=== PATIENT | male | born 1975 | race Hispanic/Latino ===

== ENCOUNTER 2021-04-18 19:59 | Inpatient (IN) | payer BC, OTHER ==
[2021-04-18] MEDS ORDERED: FAMOTIDINE 20 MG/2 ML VIAL IV ONE (20:42)
[2021-04-18] MEDS ORDERED: DIPHENHYDRAMINE 50 MG/ML VIAL ONE (20:42)
[2021-04-18] MEDS ORDERED: dexAMETHasone 10 MG/ML VIAL ONE (20:42)
[2021-04-18] MEDS ORDERED: NA CHLORIDE 0.9% 1,000 ML ONE ×2 (20:43→22:25)
[2021-04-18 20:46] LABS: Absolute Lymphocytes (CBC) 2.4 K/uL (0.7-4.9); Hematocrit 46.3 % (39.6-49.0); Lymphocytes % 30.9 % (15.3-44.8); MPV 8.1 fL (7.6-11.3); RBC Red Blood Cell Count 5.13 M/uL (4.33-5.43)
[2021-04-18 21:04] LABS: Albumin 4.1 g/dL (3.4-5.0); Bilirubin Direct 0.1 mg/dL (0-0.2); Bilirubin Total 0.5 mg/dL (0.2-1.0); Potassium 3.3 mmol/L (3.5-5.1); Protein, Total 7.8 g/dL (6.4-8.2)
[2021-04-18 21:08] LABS: Troponin High Sensitivity 63.9 pg/mL (<58.9)
[2021-04-18] MEDS ORDERED: ASPIRIN 325 MG TAB ONE (21:24)
[2021-04-18] MEDS ORDERED: MORPHINE 4 MG/ML SYR ONE ×2 (21:24→22:25)
[2021-04-18] MEDS ORDERED: ONDANSETRON 4 MG/2 ML VIAL ONE ×2 (21:24→22:25)
[2021-04-18] MEDS ORDERED: ASPIRIN 81 MG CHEWABLE TABLET ONE (21:27)
[2021-04-18 21:31] LABS: Protime INR 1.03
--- NOTE | 2021-04-18 21:31 | RAD REPORT ---
EXAM DESCRIPTION: RAD - Chest Single View - 04/18/2021 9:08 pm CLINICAL HISTORY: CHEST PAIN COMPARISON: CHEST PA AND LAT 2 VIEW dated 02/02/2012; CHEST PA AND LAT 2 VIEW dated 01/23/2009 FINDINGS: Lines: None. Lungs: Low lung volumes with mild basilar opacities. Pleural: No significant pleural effusions or pneumothorax. Cardiac: The heart size is within normal limits. Bones: No acute fractures. Other: IMPRESSION: Low lung volumes and likely basilar atelectasis.
--- NOTE | 2021-04-18 22:04 | RAD REPORT ---
EXAM DESCRIPTION: CTAbdomen Pelvis Wo Contrast - 04/18/2021 9:54 pm CLINICAL HISTORY: EPIGASTRIC PAIN COMPARISON: No comparisons TECHNIQUE: CT of the abdomen and pelvis was performed. All CT scans are performed using dose optimization technique as appropriate and may include automated exposure control or mA/KV adjustment according to patient size. FINDINGS: Lower chest: Dependent atelectasis. Liver: Hepatic steatosis. Biliary: Cholelithiasis. Stone impacted near the gallbladder neck. Very mild pericholecystic strandin g. Stomach: No significant focal abnormality. Duodenum: No significant focal abnormality. Pancreas: No significant abnormality. Spleen: No significant abnormality. Adrenal: No suspicious lesions. Kidney/ureter: No hydronephrosis. No renal calculi. Retroperitoneum: No retroperitoneal adenopathy. Vascular: No aneurysm. Bowel: No significant focal abnormality. Normal appendix. Peritoneum: No ascites or free air. Fat containing inguinal hernias. Bladder: Grossly unremarkable. Reproductive: No adnexal masses. Bones: No acute fracture. Other: n/a IMPRESSION: Gallstone impacted near the gallbladder neck with mild pericholecystic stranding concern ing for acute cholecystitis.
--- NOTE | 2021-04-18 22:58 | EDPHYS ---
Physician Documentation [facility] Name: Konstantin Patel Age: 46 yrs Sex: Male : 1975 Arrival Date: 04/18/2021 Time: 20:00 Bed 19 Private MD: ED Physician Hemanth Foreman HPI: 04/18 20:16 This 46 yrs old Male presents to ER via Wheelchair with complaints of pm1 Epigastric Pain - Severe, Swelling of eye. 20:16 The patient presents with abdominal pain in the epigastric area. Onset: The pm1 symptoms/episode began/occurred today. The symptoms do not radiate. Associated signs and symptoms: Pertinent negatives: nausea, vomiting, and diarrhea, chest pain, shortness of breath. The symptoms are described as sharp. Modifying factors: The symptoms are alleviated by nothing, the symptoms are aggravated by food, Beef stew 1-2 hour prior to onset of pain. Severity of pain: in the emergency department the pain is actually worse. The patient has not experienced similar symptoms in the past. The patient has not recently seen a physician. Patient reports swelling to left lower eyelid and rash to face with onset at the same time of abdominal pain. Historical: - Allergies: 20:31 No Known Allergies; lp1 - Home Meds: 20:31 Metformin Oral [Active]; Lisinopril Oral [Active]; lp1 - PMHx: 20:31 Hypertensive disorder; Diabetes mellitus; lp1 - PSHx: 20:31 None; lp1 - Immunization history:: Adult Immunizations up to date. - Social history:: Smoking status: Patient denies any tobacco usage or history of. ROS: 20:16 Constitutional: Negative for fever, chills, and weight loss. pm1 20:16 Cardiovascular: Negative for chest pain, palpitations, and edema, Respiratory: Negative for shortness of breath, cough, wheezing, and pleuritic chest pain. 20:16 Back: Negative for injury and pain, MS/Extremity: Negative for injury and deformity, Skin: Negative for injury, rash, and discoloration, Neuro: Negative for headache, weakness, numbness, tingling, and seizure. 20:16 Eyes: Positive for swelling, of the left lower eyelid. 20:16 Abdomen/GI: Positive for abdominal pain, of the epigastric area, Negative for nausea, vomiting, and diarrhea. 20:16 All other systems are negative. Exam: 20:16 Constitutional: This is a well developed, well nourished patient who is awake, alert, pm1 and in no acute distress. Head/Face: Normocephalic, atraumatic. 20:16 Back: No spinal tenderness. No costovertebral tenderness. Full range of motion. MS/ Extremity: Pulses equal, no cyanosis. Neurovascular intact. Full, normal range of motion. 20:16 Eyes: Extraocular movements: no acute changes, Conjunctiva: no acute changes, Lids and lashes: mild swelling present to left lower eyelid. 20:16 ENT: Exam is negative for acute changes, Mouth: no acute changes, Lips: normal, moist, Oral mucosa: normal, pink and intact, moist. 20:16 Cardiovascular: Exam negative for acute changes, Rate: normal, Rhythm: regular, Pulses: no pulse deficits are appreciated. 20:16 Respiratory: Exam negative for acute changes, respiratory distress, shortness of breath, Breath sounds: are clear throughout. 20:16 Abdomen/GI: Inspection: obese Palpation: soft, in all quadrants, moderate abdominal tenderness, in the epigastric area. 20:16 Skin: Appearance: normal except for affected area, abscess, not appreciated, cellulitis, is not appreciated, rash a mild rash is noted, rash can be described as macular, nonspecific, on the right cheek and left cheek. 20:16 Neuro: Exam negative for acute changes, Orientation: is normal, Motor: is normal, moves all fours. Vital Signs: 20:15 BP 138 / 90; Pulse 65; Resp 24; Pulse Ox 100% on R/A; Weight 131.54 kg (R); Height 5 lp1 ft. 11 in. (180.34 cm); Pain 9/10; 20:56 BP 138 / 90; Pulse 81; Resp 16; Pulse Ox 98% on R/A; kd3 21:05 BP 111 / 68; Pulse 82; Resp 20; Pulse Ox 100% on R/A; kd3 21:44 BP 109 / 53; Pulse 67; Resp 20; Pulse Ox 100% on R/A; kd3 22:43 BP 111 / 75; Pulse 72; Resp 16; Pulse Ox 100% on R/A; kd3 22:45 Temp 98.0(O); kd3 04/19 01:11 BP 123 / 75; Pulse 82; Resp 16; Pulse Ox 100% ; kd3 04/18 20:15 Body Mass Index 40.45 (131.54 kg, 180.34 cm) lp1 MDM: 04/18 20:09 Patient medically screened. pm1 22:39 Data reviewed: vital signs. Data interpreted: Pulse oximetry: on room air is 100 %. pm1 Interpretation: normal. 22:56 Counseling: I had a detailed discussion with the patient and/or guardian regarding: the pm1 historical points, exam findings, and any diagnostic results supporting the discharge/admit diagnosis, lab results, radiology results, the need for further work-up and treatment in the hospital. 23:18 Physician consultation: Mik Pierre MD was called at 23:18, was contacted at 23:18, pm1 regarding consult, patient's condition, and will see patient tomorrow, would like medications started, NPO, Zosyn. Admit to hospitalist for cardiac clearance. 04/18 20:14 Order name: Troponin High Sensitivity; Complete Time: 21:10 pm1 04/18 20:14 Order name: Basic Metabolic Panel; Complete Time: 21:10 pm1 04/18 20:14 Order name: CBC with Diff; Complete Time: 20:50 pm1 04/18 20:14 Order name: Hepatic Function; Complete Time: 21:10 pm1 04/18 20:14 Order name: Lipase; Complete Time: 21:10 pm1 04/18 21:10 Order name: Magnesium pm1 04/18 20:17 Order name: Chest Single View XRAY; Complete Time: 21:33 pm1 04/18 21:10 Order name: NT PRO-BNP pm1 04/18 21:10 Order name: PT-INR; Complete Time: 21:33 pm1 04/18 21:10 Order name: COVID-19 SARS RT PCR (Document "Date of Onset" if Symptomatic); Complete pm1 Time: 22:13 04/18 21:10 Order name: Magnesium; Complete Time: 22:11 EDMS 04/18 21:10 Order name: NT PRO-BNP; Complete Time: 22:11 EDMS 04/18 21:47 Order name: Abdomen ; Complete Time: 22:11 EDMS 04/18 20:14 Order name: EKG; Complete Time: 20:14 pm1 04/18 20:14 Order name: EKG - Nurse/Tech; Complete Time: 20:32 pm1 04/18 20:14 Order name: IV Saline Lock; Complete Time: 20:50 pm1 04/18 20:14 Order name: Labs collected and sent; Complete Time: 20:50 pm1 04/18 21:10 Order name: Cardiac monitoring; Complete Time: 21:11 pm1 04/18 22:15 Order name: US Abdomen Limited pm1 04/18 21:10 Order name: O2 Per Protocol; Complete Time: 21:11 pm1 04/18 21:10 Order name: O2 Sat Monitoring; Complete Time: 21:11 pm1 04/18 22:15 Order name: NPO; Complete Time: 22:17 pm1 Administered Medications: 20:49 Drug: Pepcid (famotidine) 20 mg Route: IVP; Site: left antecubital; kd3 20:49 Drug: Decadron - Dexamethasone 10 mg Route: IVP; Site: left antecubital; kd3 20:49 Drug: NS 0.9% 1000 ml Route: IV; Rate: 1000 ml; Site: left antecubital; kd3 20:50 Drug: Benadryl (diphenhydrAMINE) 25 mg Route: IVP; Site: left antecubital; kd3 21:30 Drug: Aspirin 325 mg Route: PO; kd3 21:30 Drug: morphine 4 mg Route: IVP; Site: left antecubital; kd3 21:30 Drug: Zofran (Ondansetron) 4 mg Route: IVP; Site: left antecubital; kd3 22:26 Drug: morphine 4 mg Route: IVP; Site: left antecubital; kd3 22:39 Drug: NS 0.9% 1000 ml Route: IV; Rate: 100 ml/hr; Site: left antecubital; kd3 23:27 Drug: Zosyn (piperacillin-tazobactam) 3.375 grams Route: IVPB; Infused Over: 60 mins; kd3 Site: left antecubital; 04/19 01:43 Follow up: IV Status: Completed infusion; IV Intake: 100ml lp1 Disposition: 04:20 Co-signature as Attending Physician, Hemanth Foreman MD. [email or web address] Disposition Summary: 04/18/21 22:57 Hospitalization Ordered Hospitalization Status: Inpatient Admission pm1 Provider: Rhina Connell pm1 Location: Telemetry/MedSurg (Inpatient) pm1 Condition: Stable pm1 Problem: new pm1 Symptoms: have improved pm1 Bed/Room Type: Standard pm1 Room Assignment: 223(04/19/21 00:43) mw Diagnosis - Acute cholecystitis pm1 - Rash and other nonspecific skin eruption pm1 Forms: - Medication Reconciliation Form pm1 - SBAR form pm1 Signatures: Dispatcher [employer] EDMS Nurys Motta RN RN mw Leeann King RN RN lp1 Yaw Puentes, NET SOFTWARE ARCHITECT NET SOFTWARE ARCHITECT pm1 Hemanth Foreman MD MD 7 Jazlyn Walden RN RN kd3 Corrections: (The following items were deleted from the chart) 04/18 21:47 20:15 Abdomen Pelvis W Con+CT.RAD.BRZ ordered. EDAK EDMS 04/19 00:32 04/18 22:57 pm1 mw 04/19 00:43 00:32 421 mw mw
--- NOTE | 2021-04-18 22:58 | ER ---
Nurse's Notes [facility] Name: Konstantin Patel Age: 46 yrs Sex: Male : 1975 Arrival Date: 04/18/2021 Time: 20:00 Bed 19 Private MD: Diagnosis: Acute cholecystitis;Rash and other nonspecific skin eruption Presentation: 04/18 20:15 Chief complaint: Patient states: Severe epigastric pain that began suddenly about at lp1 1830, reports eating about an hour before; "I feel like my stomach is swelling"; reports some left eye redness. 20:15 Coronavirus screen: At this time, the client does not indicate any symptoms associated lp1 with coronavirus-19. Ebola Screen: No symptoms or risks identified at this time. Initial Sepsis Screen: Does the patient meet any 2 criteria? No. Patient's initial sepsis screen is negative. Does the patient have a suspected source of infection? No. Patient's initial sepsis screen is negative. Risk Assessment: Do you want to hurt yourself or someone else? Patient reports no desire to harm self or others. Onset of symptoms was April 18, 2021 at 18:30. 20:15 Method Of Arrival: Wheelchair lp1 20:15 Acuity: CHAVA 2 lp1 Triage Assessment: 20:15 General: Appears uncomfortable, Behavior is anxious. Derm: Skin is diaphoretic. lp1 Historical: - Allergies: 20:31 No Known Allergies; lp1 - Home Meds: 20:31 Metformin Oral [Active]; Lisinopril Oral [Active]; lp1 - PMHx: 20:31 Hypertensive disorder; Diabetes mellitus; lp1 - PSHx: 20:31 None; lp1 - Immunization history:: Adult Immunizations up to date. - Social history:: Smoking status: Patient denies any tobacco usage or history of. Screenin:55 Abuse screen: Denies threats or abuse. Denies injuries from another. Nutritional kd3 screening: No deficits noted. Tuberculosis screening: No symptoms or risk factors identified. Fall Risk IV access (20 points). Assessment: 20:51 Reassessment: PT DIAPHORETIC. General: Appears uncomfortable, Behavior is calm, kd3 cooperative. Pain: Complains of pain in epigastric area. Neuro: Level of Consciousness is awake, alert, obeys commands, Oriented to person, place, time, situation. Cardiovascular:. Respiratory: Airway is patent Respiratory effort is even, unlabored. GI: Reports upper abdominal pain, cramping, gaseousness, stomach feels swollen. GI: Bowel sounds present X 4 quads. Derm: Skin is clammy, diaphoretic. Vital Signs: 20:15 BP 138 / 90; Pulse 65; Resp 24; Pulse Ox 100% on R/A; Weight 131.54 kg (R); Height 5 lp1 ft. 11 in. (180.34 cm); Pain 9/10; 20:56 BP 138 / 90; Pulse 81; Resp 16; Pulse Ox 98% on R/A; kd3 21:05 BP 111 / 68; Pulse 82; Resp 20; Pulse Ox 100% on R/A; kd3 21:44 BP 109 / 53; Pulse 67; Resp 20; Pulse Ox 100% on R/A; kd3 22:43 BP 111 / 75; Pulse 72; Resp 16; Pulse Ox 100% on R/A; kd3 22:45 Temp 98.0(O); kd3 04/19 01:11 BP 123 / 75; Pulse 82; Resp 16; Pulse Ox 100% ; kd3 04/18 20:15 Body Mass Index 40.45 (131.54 kg, 180.34 cm) lp1 ED Course: 04/18 20:00 Patient arrived in ED. wm 20:05 Jazlyn Walden, LATISHA is Primary Nurse. kd3 20:08 Yaw Puentes NP is PHCP. pm1 20:08 Hemanth Foreman MD is Attending Physician. pm1 20:15 Patient has correct armband on for positive identification. Bed in low position. 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 Pulse ox on. NIBP on. 20:31 Triage completed. lp1 20:51 Inserted saline lock: 20 gauge in left antecubital area, using aseptic technique. kd3 20:55 Arm band placed on left wrist. kd3 21:08 Chest Single View XRAY In Process Unspecified. EDMS 21:09 Notified Nurse Practitioner and/or Physician Right Of Way Man of Troponin 63.9. lp1 21:54 Abdomen In Process Unspecified. EDMS 22:41 US Abdomen Limited In Process Unspecified. EDMS 22:56 Rhina Connell MD is Hospitalizing Provider. pm1 Administered Medications: 20:49 Drug: Pepcid (famotidine) 20 mg Route: IVP; Site: left antecubital; kd3 20:49 Drug: Decadron - Dexamethasone 10 mg Route: IVP; Site: left antecubital; kd3 20:49 Drug: NS 0.9% 1000 ml Route: IV; Rate: 1000 ml; Site: left antecubital; kd3 20:50 Drug: Benadryl (diphenhydrAMINE) 25 mg Route: IVP; Site: left antecubital; kd3 21:30 Drug: Aspirin 325 mg Route: PO; kd3 21:30 Drug: morphine 4 mg Route: IVP; Site: left antecubital; kd3 21:30 Drug: Zofran (Ondansetron) 4 mg Route: IVP; Site: left antecubital; kd3 22:26 Drug: morphine 4 mg Route: IVP; Site: left antecubital; kd3 22:39 Drug: NS 0.9% 1000 ml Route: IV; Rate: 100 ml/hr; Site: left antecubital; kd3 23:27 Drug: Zosyn (piperacillin-tazobactam) 3.375 grams Route: IVPB; Infused Over: 60 mins; kd3 Site: left antecubital; 04/19 01:43 Follow up: IV Status: Completed infusion; IV Intake: 100ml lp1 Intake: 01:43 IV: 100ml; Total: 100ml. lp1 Outcome: 04/18 22:57 Decision to Hospitalize by Provider. pm1 04/19 02:44 Patient left the ED. kd3 Signatures: Dispatcher [employer] EDLeeann Mccall, RN RN lp1 Yaw Puentes NP GRILL ATTENDANT pm1 Colleen Bush Kyli, RN RN kd3 Corrections: (The following items were deleted from the chart) 04/18 21:09 20:15 Chief complaint: Patient states: Severe epigastric pain that began suddenly about lp1 at 1830, reports eating about an hour before; "I feel like my stomach is swelling"; reports some bilateral eye redness lp1
[2021-04-18] MEDS ORDERED: NA CHLORIDE 0.9% 250 ML ONE (23:28)
[2021-04-18] MEDS ORDERED: PIPERACIL/TAZO 3.375 GM VIAL IV ONE (23:28)
--- NOTE | 2021-04-19 00:27 | P.HP ---
Certification for Inpatient Patient admitted to: Inpatient With expected LOS: <2 Midnights Practitioner: I am a practitioner with admitting privileges, knowledge of patient current condition, hospital course, and medical plan of care. Services: Services provided to patient in accordance with Admission requirements found in Title 42 Section 412.3 of the Code of Federal Regulations Patient History Date of Service: 04/19/21 Primary Care Provider: Dr. Garcia Reason for admission: Cholecystitis History of Present Illness: Patient is a 46-year-old male with type 2 diabetes [id number] and hypertension who presented to the ED with epigastric pain that began this evening. He describes it as severe pressure and cramping. He states it starts after he ate dinner and could not get it to go away so he came into the emergency department. CT abdomen pelvis showed "gallstone impacted near the gallbladder neck with mild pericholecystic stranding concerning for acute cholecystitis "abdominal ultrasound read pending. WBC was not elevated at 7.6, potassium was 3.3 and troponin high-sensitivity was 63.9. EKG was unremarkable. Patient received IV fluids, morphine, Zofran, and Zosyn in ED and states his pain has greatly improved. Dr. Peirre from surgery was called and wishes to admit patient to hospitalist service for cardiac clearance with surgery consulting due to the high-sensitivity troponin elevation. We will recheck troponin q6hx2 and trend. Patient will be n.p.o., on IV fluids, and continued on Zosyn per surgery's request. 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 - Family History Father -: Hypertension, Diabetes Mother -: Hypertension, Diabetes - Social History Smoking Status: Never smoker Alcohol use: Yes CD- Drugs: No Caffeine use: Yes Place of Residence: Home Review of Systems 10-point ROS is otherwise unremarkable Gastrointestinal: Abdominal Pain, As per HPI Physical Examination - Physical Exam General: Alert, In no apparent distress, Oriented x3 HEENT: Atraumatic, PERRLA, Mucous membr. moist/pink, EOMI, Sclerae nonicteric Neck: Supple, 2+ carotid pulse no bruit, No LAD, Without JVD or thyroid abnormality Respiratory: Clear to auscultation bilaterally, Normal air movement Cardiovascular: Regular rate/rhythm, Normal S1 S2 Gastrointestinal: Normal bowel sounds, No rebound, No guarding, Tenderness Musculoskeletal: No tenderness Integumentary: No rashes Neurological: Normal speech, Normal strength at 5/5 x4 extr, Normal tone, Normal affect - Studies Laboratory Data (last 24 hrs) 04/18/21 21:14: PT 11.9, INR 1.03 04/18/21 21:14: Magnesium 2.0 04/18/21 16:30: WBC 7.60, Hgb 15.9, Hct 46.3, Plt Count 179 04/18/21 16:30: Sodium 139, Potassium 3.3 L, BUN 16, Creatinine 1.42 H, Glucose 148 H, Total Bilirubin 0.5, AST 37, ALT 61, Alkaline Phosphatase 96, Lipase 259 Assessment and Plan - Problems (Diagnosis) (1) Acute cholecystitis Current Visit: Yes Status: Acute (2) Elevated troponin Current Visit: Yes Status: Acute (3) Hypertension Current Visit: Yes Status: Chronic Qualifiers: Hypertension type: primary hypertension Qualified Code(s): I10 - Essential (primary) hypertension (4) Diabetes mellitus type 2, noninsulin dependent Current Visit: Yes Status: Chronic - Plan -Dr. Pierre consulting. Patient received 1 dose of Zosyn in the ED, will continue -Patient is n.p.o. Has IV fluids going at 100 cc an hour -Potassium was slightly low at 3.3. We will replete -ACHS Accu-Cheks with mild sliding scale insulin -Initial high-sensitivity troponin was elevated. EKG negative. Will repeat every 6 hours x2 -Morphine as needed pain and Zofran as needed nausea DVT PPx: Eliquis Code: Full Discharge Plan: Home Plan to discharge in: 48 Hours - Advance Directives Does patient have a Living Will: No Does patient have a Durable POA for Healthcare: No - Code Status/Comfort Care Code Status Assessed: Yes (Full) Critical Care: No Time Spent Managing Pts Care (In Minutes): 70
[2021-04-19 02:31] VITALS: BMI 40.4
[2021-04-19] MEDS ORDERED: ONDANSETRON 4 MG/2 ML VIAL IV PRN (02:35)
[2021-04-19] MEDS: NA CHLORIDE 0.9% 1,000 ML IV SCH ×3 (02:35→20:07)
[2021-04-19] MEDS ORDERED: ACETAMINOPHEN 500 MG TAB PO PRN (02:35)
[2021-04-19] MEDS ORDERED: MORPHINE 4 MG/ML SYR IV PRN (02:35)
[2021-04-19 03:37] LABS: Thyroid Stimulating Hormone 0.904 uIU/mL (0.360-3.740)
[2021-04-19 04:15] LABS: Potassium 4.1 mmol/L (3.5-5.1)
--- NOTE | 2021-04-19 07:13 | RAD REPORT ---
EXAM DESCRIPTION: US - Abdomen Exam Limited - 04/18/2021 10:41 pm CLINICAL HISTORY: EPIGASTRIC PAIN COMPARISON: Abdomen Pelvis Wo Contrast dated 04/18/2021 FINDINGS: Negative for cholelithiasis by ultrasound. Some sludge is present. The gallbladder wall is not thickened. It measures 2 millimeters. The common bile duct is obscured. Negative sonographic Mur phy's sign. Hepatic steatosis . IMPRESSION: By ultrasound, negative for cholelithiasis despite a gallstone identified on CT. Note th at the gallbladder neck and common bile duct were obscured by overlying bowel gas. The sonographic Mu rphy sign is negative. Overall, no evidence of cholecystitis by ultrasound. If persistent clinical co ncern, could consider HIDA scan.
[2021-04-19] MEDS: INSULIN -REGULAR HUMAN 50 UNIT/0.5 ML ML SQ SCH ×4 (07:30→22:44)
[2021-04-19] MEDS: PIPER TAZO 3.375 GM in NA CHLORIDE 0.9% 100 ML IV SCH ×2 (08:24→20:07)
--- NOTE | 2021-04-19 08:49 | EKG ---
Test Date: 2021-04-18 Test Time: 20:21:06 Benefits Manager: HUMBERTO MEASUREMENT RESULTS: Intervals: Rate: 64 SD: 152 QRSD: 88 QT: 420 QTc: 433 [place]: P: 30 SD: 152 QRS: 72 T: 50 INTERPRETIVE STATEMENTS: Normal sinus rhythm Possible Lateral infarct, age undetermined Abnormal ECG No previous ECG available for comparison Electronically Signed On 04-19-21 08:47:38 PLANT OPERATOR CONTROL ROOM OPERATOR by Tone Ayala
[2021-04-19] MEDS ORDERED: ENOXAPARIN 40 MG/0.4 ML SQ SCH (09:00)
[2021-04-19] MEDS ORDERED: FENTANYL CITR 100 MCG/2 ML ONE ×3 (09:41→10:58)
[2021-04-19] MEDS ORDERED: ROCURONIUM 50 MG/5 ML VIAL IV ONE ×2 (09:41→10:58)
[2021-04-19] MEDS ORDERED: propofoL 200 MG/20 ML VIAL IV ONE (09:41)
[2021-04-19] MEDS ORDERED: MIDAZOLAM HCL 2 MG/2 ML INJ ONE (09:41)
[2021-04-19] MEDS ORDERED: LIDOCAINE 2% MPF 5 ML VIAL ONE (09:41)
[2021-04-19] MEDS ORDERED: NEOSTIGMINE 1 MG/ML -5 ML ONE (09:42)
[2021-04-19] MEDS ORDERED: GLYCOPYRROLATE 0.2 MG/ML SYR ONE (09:42)
[2021-04-19] MEDS ORDERED: ONDANSETRON 4 MG/2 ML VIAL ONE ×2 (09:43→11:04)
[2021-04-19] MEDS ORDERED: SUCCINYLCHOLINE 20 MG/ML (10 ML) IV ONE (10:10)
--- NOTE | 2021-04-19 10:41 | CON ---
Date of Consultation: 04/19/2021 Diagnosis: Acute cholecystitis, symptomatic cholelithiasis, acute right upper quadrant abdominal christopher n. History Of Present Illness: This is the case of a 46-year-old patient with type 2 diabetes, comes to us with epigastric right upper quadrant pain radiating to the back that started yesterday after eati ng some stew soup at home. It was a little greasy than usual he says and he comes this morning to th e ER with severe abdominal pain, found to have a stone impacted in the neck of the gallbladder with p ericholecystic fluid, admitted to the hospital, and surgical consult was obtained for a cholecystecto my. At the same time, the patient has increased troponin. Cardiac seen this patient this morning an d cleared him for the cardiac standpoint to have the cholecystectomy done. Past Medical History: Type 2 diabetes, obesity, hypertension. Past Surgical History: Includes ankle surgery. Social History: He does not smoke. 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 He drinks alcohol just occasionall y. Family History: Includes diabetes. Review of Systems: Nausea, vomiting, bloating, abdominal pain. No dysuria, hematuria, hematochezia, melena. No recent traveling out of the country. No family member sick at home. Ten points otherwise unremarkable. Physical Examination: General: The patient is awake, alert. HEENT: Pupils are equal and reactive. Anicteric. Neck: Supple. Chest: Clear. Abdomen: Soft and depressible. Epigastric and right upper quadrant abdominal pain with Guerrero sign positive. Rectal and Genitalia: Deferred. Extremities: Good capillary refill. Neurologic: Cranial nerves 2 through 12 grossly within normal limits. Laboratory Data: WBC count of 7.6, hemoglobin of 15.9. INR of 1.03. Potassium 3.3. Troponin is 63 , 66, and 60. Total bilirubin of 0.5. Ultrasound shows a stone impacted in the gallbladder neck wit h pericholecystic fluid consistent with acute cholecystitis. Assessment: It is a male, who comes to us with a symptomatic cholelithiasis, right upper quadrant pa in, intractable abdominal pain, stone is impacted in the neck of the gallbladder. Cardiology has niles ared him for surgical intervention. We will proceed with laparoscopic possible open cholecystectomy with benefits, alternatives, and risks including, but not limited to infection, bleeding, damage to a djacent structures, anesthesia complication, choledocholithiasis, bile leak, pancreatitis, OR, and ev en . He also understands this may not relieve any symptoms. He might need more than one surgic al intervention. He understood, signed a consent. The patient was immediately booked. PATI/TYRONE Voice ID: [id number] Report ID: [id number]
[2021-04-19] MEDS ORDERED: dexAMETHasone 10 MG/ML VIAL ONE (11:04)
[2021-04-19] MEDS ORDERED: HYDROCODONE/APAP 5/325 MG TAB PO PRN (11:08)
[2021-04-19] MEDS: MEPERIDINE HCL 25 MG/ML SYR ONE ×2 (11:19→11:50)
--- NOTE | 2021-04-19 11:19 | P.BOP ---
Preoperative diagnosis: Acute cholecystitis, sympt cholelithiasis Postoperative diagnosis: same Primary procedure: Laparoscopic cholecystectomy Estimated blood loss: <10cc Specimen: gb Findings: inflammed distended gallbladder Anesthesia: General Complications: None Drain(s): ESME drain Transferred to: Recovery Room Condition: Good
[2021-04-19 11:25] VITALS: O2SAT 99
--- NOTE | 2021-04-19 12:02 | OP ---
Date of Procedure: 04/19/2021 Surgeon: Mik Pierre MD Preoperative Diagnoses: Acute cholecystitis, symptomatic cholelithiasis. Postoperative Diagnoses: Acute cholecystitis, symptomatic cholelithiasis. Procedure: Laparoscopic cholecystectomy. Estimated Blood Loss: Less than 10 mL. Specimen: Gallbladder. Finding: Inflamed and distended gallbladder. Anesthesia: General plus local. Drains: ESME #10. Indication: This is the case of a 46-year-old patient, who comes to us with acute abdominal pain, fo und to have a stone impacted in the gallbladder neck with inflammation of the gallbladder, Guerrero sig n positive. The patient was offered laparoscopic possible open cholecystectomy as one of the options after the patient was medically and cardiac clearance. The benefits, alternatives, and risks fully explained, which include, but not limited to infection, bleeding, damage to adjacent structures, anes thesia complication, choledocholithiasis, bile leak, pancreatitis, WI, and even . He also under stands this may not relieve any symptoms. He might need more than one surgical intervention. He und erstood, signed a consent. Procedure In Detail: The patient was brought to the operating room, placed in supine position. Anes thesia was done without complication. Abdominal area was prepped and draped in the usual sterile fas hion. Marcaine 0.5% was injected for local anesthetic followed by sharp incision of the skin in the supraumbilical region. Incision was carried down to fascia, which was opened under direct vision. P eritoneum was encountered, opened under direct vision. Vicryl #1 placed inside the fascia. Mariposa t rocar was carefully introduced. Pneumoperitoneum was obtained. I placed 3 more trocars, 5 mm each o ne of them in the in the epigastric and right upper quadrant under direct visualization. At that [facility] ent, I proceeded to put a grasper in the fundus of the gallbladder, another grasper in the infundibul um, retracting the gallbladder in the inferolateral fashion, exposing the triangle of Calot, obtainin g critical view. The gallbladder was so distended, but we are going to deflate the area, able to wor k in the infundibulum, so we put an Endo needle under direct visualization, connected to suction, and aspirated the gallbladder under direct visualization and then removed the needle once again under di rect visualization and then put a grasper on the area where the needle was. Once again, the gallblad ej was positioned in the inferolateral fashion, exposing the triangle of Calot, obtaining critical v iew. Cystic duct and cystic artery were clearly isolated, freed circumferentially and a connection b etween those and the gallbladder were clearly identified. I proceeded to ligate those by using at le ast 3 clips proximal, 1 clip distal, ligation in middle. Same was done with the cystic artery. No b ile leak. No bleeding. The gallbladder was removed from liver using Bovie cauterizer and removed fr om abdominal cavity using EndoCatch through the umbilical incision. The area was inspected once agai n. No bile leak. No bleeding. Due to inflammation and that the swelling of that area, I felt safer leaving a ESME drain in that region, collecting all that fluid. So, the ESME was placed then under dire ct visualization exiting through one of the trocar sites and secured in place with 2-0 nylon. At holger t moment, I proceeded to deflate the pneumoperitoneum. Closed the fascia with #1 Vicryl. Irrigated subcutaneous tissue, closed that with 3-0 chromic and skin with wolf. Sponge count, instrument co unts correct. The patient tolerated the procedure well. The patient was sent to recovery in stable condition. PATI/TYRONE Voice ID: [id number] Report ID: [id number]
--- NOTE | 2021-04-19 12:35 | CON ---
Admitted to Dr. Connell with acute cholecystitis. I was consulted for elevated troponin. History Of Present Illness: Mr. Patel is 48. He has a history of diabetes and hypertension, obesit y, came in with mid-epigastric pain, some diaphoresis, was found to have acute cholecystitis on CT of the abdomen. Denied any chest pain, nausea, vomiting. Denied any PND, orthopnea, pedal edema, palp itations, or syncope. Was found to have a troponin of 63.96, potassium of 3.3, creatinine of 1.32. He is asymptomatic right now except for some pressure on the right upper quadrant. I was asked to cl ear him for surgery by Dr. Pierre. Past Medical History: As stated above. Allergies: NONE. Review of Systems: Negative. Social History: Negative. Family History: Negative. Medications: Include metoprolol, olmesartan, metformin as well as lisinopril with HCT. Physical Examination: Vital Signs: Stable, afebrile. HEENT: Negative. Neck: Supple with no bruit. Chest: Clear. Cardiac: Revealed a regular rhythm and rate. No murmurs, gallops, or rubs. Abdomen: Benign. Extremities: Revealed no clubbing, cyanosis, or edema. Diagnostic Data: EKG showed possible old lateral infarction versus LVH. Chest x-ray showed atelecta sis. Troponin is 63.96. Potassium 3.3, creatinine 1.32. Impression And Plan: 1.Elevated troponin, nonspecific. No cardiac symptoms. EKG is fairly unremarkable. Echocardiogram will be done after surgery, but he is cleared for surgery from my standpoint. 2.Renal insufficiency. 3.Hypokalemia that needs to be corrected. 4.Hypertension. 5.Diabetes. 6.Obesity. 7.Acute cholecystitis, surgery is pending. I think he should have an echo eventually and I would ma ke an arrangement for him to have an outpatient stress test, but we will see him postop. JENSEN/TYRONE Voice ID: [id number] Report ID: [id number]
--- NOTE | 2021-04-19 12:57 | P.PN ---
Subjective Date of Service: 04/19/21 Primary Care Provider: Dr. Garcia Chief Complaint: Cholecystitis Subjective: No new changes, No C/O voiced Taken to OR for cholecystectomy today Physical Examination - Vital Signs Temperature: 97.0 F Blood Pressure: 132/85 Pulse: 83 Respirations: 16 Pulse Ox (%): 93 - Studies Laboratory Data (last 24 hrs) 04/18/21 21:14: PT 11.9, INR 1.03 04/18/21 21:14: Magnesium 2.0 04/18/21 16:30: WBC 7.60, Hgb 15.9, Hct 46.3, Plt Count 179 04/18/21 16:30: Sodium 139, Potassium 3.3 L, BUN 16, Creatinine 1.42 H, Glucose 148 H, Total Bilirubin 0.5, AST 37, ALT 61, Alkaline Phosphatase 96, Lipase 259 Assessment And Plan Physician Review: Patient Assessed, Agree with Above Assessment and Plan Physician Review Additional Text: - Physical Exam General: Alert, In no apparent distress, Oriented x3 HEENT: Atraumatic, PERRLA, Mucous membr. moist/pink, EOMI, Sclerae nonicteric Neck: Supple, 2+ carotid pulse no bruit, No LAD, Without JVD or thyroid abnormality Respiratory: Clear to auscultation bilaterally, Normal air movement Cardiovascular: Regular rate/rhythm, Normal S1 S2 Gastrointestinal: Normal bowel sounds, No rebound, No guarding, Tenderness Musculoskeletal: No tenderness Integumentary: No rashes Neurological: Normal speech, Normal strength at 5/5 x4 extr, Normal tone, Normal affect - Studies Troponin trending down Assessment and Plan - Problems (Diagnosis) (1) Acute cholecystitis Current Visit: Yes Status: Acute (2) Elevated troponin Current Visit: Yes Status: Acute (3) Hypertension Current Visit: Yes Status: Chronic Qualifiers: Hypertension type: primary hypertension Qualified Code(s): I10 - Essential (primary) hypertension (4) Diabetes mellitus type 2, noninsulin dependent Current Visit: Yes Status: Chronic - Plan Follow postop cholecystectomy Continue insulin sliding scale with Accu-Chek Start diet per surgical team Mild troponin trending down, evaluated by cardiology, no intervention needed now Replete electrolytes as needed Morphine as needed pain and Zofran as needed nausea DVT PPx: Eliquis 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
[2021-04-20 05:57] LABS: Absolute Lymphocytes (CBC) 1.2 K/uL (0.7-4.9); Hematocrit 39.2 % (39.6-49.0); Lymphocytes % 11.3 % (15.3-44.8); RBC Red Blood Cell Count 4.35 M/uL (4.33-5.43)
[2021-04-20 06:21] LABS: Bilirubin Total 0.8 mg/dL (0.2-1.0); Potassium 3.5 mmol/L (3.5-5.1); Protein, Total 6.3 g/dL (6.4-8.2)
--- NOTE | 2021-04-20 07:01 | ECHO ---
HEIGHT: 5 ft 11 in WEIGHT: 290 lb 0 oz DATE OF STUDY: 04/19/[address]: Tone Ayala MD 2-DIMENSIONAL: YES M.MODE: YES DOPPLER: YES COLOR FLOW: YES TDS: NO PORTABLE: NO DEFINITY: NO BUBBLE STUDY: NO DIAGNOSIS: CHEST PAIN CARDIAC HISTORY: CATHERIZATION: NO SURGERY: NO PROSTHETIC VALVE: NO PACEMAKER: NO MEASUREMENTS (cm) DIASTOLIC (NORMALS) SYSTOLIC (NORMALS) IVSd 0.9 (0.6-1.2) LA Diam 3.0 (1.9-4.0) LVEF 65% LVIDd 3.8 (3.5-5.7) LVIDs 2.4 (2.0-3.5) %FS 35% LVPWd 0.9 (0.6-1.2) Ao Diam 3.5 (2.0-3.7) 2 DIMENSIONAL ASSESSMENT: RIGHT ATRIUM: NORMAL LEFT ATRIUM: NORMAL RIGHT VENTRICLE: NORMAL LEFT VENTRICLE: NORMAL TRICUSPID VALVE: NORMAL MITRAL VALVE: NORMAL PULMONIC VALVE: NORMAL AORTIC VALVE: NORMAL PERICARDIAL EFFUSION: NONE AORTIC ROOT: NORMAL LEFT VENTRICULAR WALL MOTION: NORMAL. DOPPLER/COLOR FLOW: MILD MITRAL REGURGITATION. COMMENTS: NORMAL LEFT VENTRICULAR EJECTION FRACTION 60-65%. NORMAL WALL MOTION. MILD MITRAL REGURGITATION. TECHNOLOGIST: SHAWNA HARO
[2021-04-20] MEDS: INSULIN -REGULAR HUMAN 50 UNIT/0.5 ML ML SQ SCH ×2 (07:30→11:30)
[2021-04-20] MEDS ORDERED: POTASSIUM CL SA 10 MEQ TAB PO ONE (09:00)
[2021-04-20] MEDS ORDERED: POTASSIUM 25 MEQ EFFERV TAB PO ONE (09:00)
[2021-04-20] MEDS: PIPER TAZO 3.375 GM in NA CHLORIDE 0.9% 100 ML IV SCH (09:19)
[2021-04-20] MEDS: NA CHLORIDE 0.9% 1,000 ML IV SCH (09:20)
[2021-04-20 09:53] VITALS: TEMP 96.8
[2021-04-20 14:09] VITALS: BP 145/81
--- NOTE | 2021-04-20 14:18 | P.DS ---
Admission Date: 04/19/21 Discharge Date: 04/20/21 Primary Care Provider: Dr. Garcia Disposition: ROUTINE DISCHARGE Reason for Admission: Cholecystitis Hospital Course: 46-year-old male with type 2 diabetes mellitus was admitted to the hospital after he presented with epigastric pain. He was found to have evidence of cholelithiasis with acute cholecystitis. He underwent laparoscopic cholecystectomy. Today's postop day #1. He is passing flatus. He is yet to have a bowel movement. He has done well postoperatively with good tolerance of diet. He has been cleared by surgery for discharge. Vital Signs/Physical Exam: Temp Pulse Resp BP Pulse Ox 96.8 F 72 17 145/81 H 97 04/20/21 12:00 04/20/21 12:00 04/20/21 12:00 04/20/21 12:00 04/20/21 12:00 General: Alert, In no apparent distress, Cooperative HEENT: Atraumatic, Normocephalic, EOMI Respiratory: Clear to auscultation bilaterally, Normal air movement Musculoskeletal: No contractures Neurological: Normal speech, Sensation intact, Normal affect Laboratory Data at Discharge: WBC 10.70 K/uL (4.3-10.9) D 04/20/21 05:45 Hgb 13.6 g/dL (13.6-17.9) 04/20/21 05:45 Hct 39.2 % (39.6-49.0) L D 04/20/21 05:45 Plt Count 174 K/uL (152-406) 04/20/21 05:45 PT 11.9 SECONDS (9.5-12.5) 04/18/21 21:14 INR 1.03 04/18/21 21:14 Sodium 139 mmol/L (136-145) 04/20/21 05:45 Potassium 3.5 mmol/L (3.5-5.1) 04/20/21 05:45 BUN 11 mg/dL (7-18) 04/20/21 05:45 Creatinine 0.91 mg/dL (0.55-1.3) 04/20/21 05:45 Glucose 164 mg/dL (74-106) H 04/20/21 05:45 Magnesium 2.0 mg/dL (1.8-2.4) 04/18/21 21:14 Total Bilirubin 0.8 mg/dL (0.2-1.0) 04/20/21 05:45 AST 36 U/L (15-37) 04/20/21 05:45 ALT 64 U/L (12-78) 04/20/21 05:45 Alkaline Phosphatase 51 U/L (45-117) 04/20/21 05:45 Triglycerides 56 mg/dL (<150) 04/19/21 03:00 Cholesterol 175 mg/dL (<200) 04/19/21 03:00 HDL Cholesterol 57 mg/dL (40-60) 04/19/21 03:00 Cholesterol/HDL Ratio 3.07 04/19/21 03:00 Lipase 259 U/L (73-393) 04/18/21 16:30 Home Medications: Cetirizine HCl [All Day Allergy Relief] 10 mg PO DAILY 04/19/21 Lisinopril [Zestril] 10 mg PO DAILY 04/19/21 Lisinopril/Hydrochlorothiazide [Lisinopril-Hctz 20-25 mg Tab] 20 - 25 mg PO DAILY 04/19/21 Metformin ER [Glucophage ER*] 500 mg PO BID 04/19/21 Amox/Clavulanate [Augmentin 875-125 Tab] 875 mg PO BID #10 tab 04/20/21 Codeine/APAP [Tylenol W/Codeine #3 tab] 1 tab PO Q4HP PRN #28 tab 04/20/21 New Medications: Amox/Clavulanate [Augmentin 875-125 Tab] 875 mg PO BID #10 tab Codeine/APAP [Tylenol W/Codeine #3 tab] 1 tab PO Q4HP PRN #28 tab PRN Reason: Pain Physician Discharge Instructions: Keep dressing intact until next doctor visit Activity: No lifting more than 10 lbs Followup: Mik Pierre MD [ACTIVE - CAN ADMIT] - 04/23/21 Misti Garcia DO [Primary Care Provider] -
--- NOTE | 2021-04-20 17:38 | PN ---
Date of Progress Note: 04/20/2021 Diagnoses: Abdominal pain, elevated troponin, also acute cholecystitis, and symptomatic cholelithias is, and status post laparoscopic cholecystectomy. Subjective: The patient is doing well. No complaint. No nausea. No vomiting. No chest pain. ESME drain serosanguineous. Objective: Chest: Clear. Abdomen: Soft and depressible. Intact surgical site. Extremities: Good capillary refill. No calf tenderness. Laboratory Data: Blood work shows sodium is 139, total bilirubin of 0.8. CBC of 10. Plan: From the surgical standpoint, the patient can be discharged home. He will follow up in my off ice this Monday morning and at that moment, we may remove the ESME drain. The patient antibi otics and pain medication, although he can make his own decisions there. Keep the area dressed and k eep dressings intact until we see him on Monday. PATI/TYRONE Voice ID: [id number] Report ID: [id number]
== END 2021-04-20 04:00 | disposition home or self-care (01) | DRG 418 ==
LOC: ER 19:59 → ERHOLD 04-19 00:28 → 2ND 04-19 01:45
PROVIDERS: ADMIT Internal Medicine; ATTEND Internal Medicine
PROC: 0FT44ZZ Resection of Gallbladder, Percutaneous Endoscopic Approach (ICD-10-PCS; principal; 2021-04-19 11:15)
DX: K80.00 Calculus of gallbladder with acute cholecystitis without obstruction (principal); Z68.41 Body mass index [BMI] 40.0-44.9, adult; R77.8 Other specified abnormalities of plasma proteins; I10 Essential (primary) hypertension; E11.9 Type 2 diabetes mellitus without complications; E66.9 Obesity, unspecified; E87.6 Hypokalemia; N28.9 Disorder of kidney and ureter, unspecified; Z20.822 Contact with and (suspected) exposure to COVID-19
CPT/HCPCS: 36415; 71045; 74176; 76705; 80048; 80053; 80061; 80076; 82947; 83690; 83735; 83880; 84439; 84443; 84484; 85025; 85610; 88304; 93005; 93306; 94010; 96365; 96366; 96375; 99284; J0330; J1100; J1200; J1650; J2175; J2250; J2405; J2543; J2704; J2710; J3010; J7030; J7050; U0003